=== PATIENT | female | born 2000 ===

== ENCOUNTER 2024-11-19 18:55 | Emergency (ER) | payer BC, SELFPAY ==
--- NOTE | ~2024-11-19 | XR_ITS ---
CLINICAL HISTORY: CP 2 view chest x-ray Comparison: None Findings: Lungs are clear without acute infiltrates. No pneumothorax. Heart size normal. No acute bony abnormalities. Metallic density under left breast. Presumably this is external. Physical exam correlation recommended. Impression: Presumed external metallic density under left breast No acute processes This document has been electronically signed by: Leonardo Harris MD on 11/19/2024 20:38:25
[2024-11-19 19:49] VITALS: BP 104/62; PULSE 93; RESP 18; TEMP 38.2; O2SAT 97; BMI 32.0
--- NOTE | 2024-11-19 19:50 | ED.URI ---
HPI - URI/Sore Throat General Chief Complaint: Fever Stated Complaint: Fever Time Seen by Provider: 11/20/24 03:40 Source: patient, family and language interpreter Mode of arrival: ambulatory Limitations: no limitations History of Present Illness ED Provider: DR. Figueroa HPI Narrative: 24-year-old female came in for evaluation of fever, generalized body ache, sore throat, coughing, intermittent nausea started since Monday. No CP, no SOB, no abdominal pain, no vomiting, no diarrhea, no dysuria, no frequency urination, no hematuria, no history of intra-abdominal surgery. No recent travel, no exposure to sick contacts. Related Data Previous Rx's ?Medication ?Instructions ?Recorded amoxicillin 875 mg-potassium 1 tab PO Q12H #14 tabs 11/20/24 clavulanate 125 mg tablet prednisone 20 mg tablet 20 mg PO BID #10 tabs 11/20/24 Allergies Allergy/AdvReac Type Severity Reaction Status Date / Time No Known Allergies Allergy Verified 11/19/24 19:51 Review of Systems Review of Systems: All other systems are reviewed and are negative Constitutional: Reports as per HPI and Reports no additional constitutional complaints Eyes: Reports as per HPI and Reports no additional eye complaints Reports system reviewed and no additional complaints, except as documented Cardiovascular: Reports as per HPI and Reports no additional cardiovascular complaints Respiratory: Reports as per HPI and Reports no additional respiratory complaints Gastrointestinal: Reports as per HPI and Reports no additional gastrointestinal complaints Genitourinary: Reports no additional female genitourinary complaints Musculoskeletal: Reports no additional musculoskeletal complaints Skin/Breast: Reports system reviewed and no additional complaints, except as docu Psychiatric: Reports no additional psychiatric complaints Endocrine: Reports no additional endocrine complaints Hematologic/Lymphatic: Reports no additional hematologic/lymphatic complaints Allergic/Immunologic: Reports no additional allergic/immunologic complaints Reports system reviewed and no additional complaints, except as documented and Reports Abnormal speech present [facility] Social History Social History Alcohol intake: never Smoked in Last 30 Days: No Use of substances other than those prescribed or required for medical reasons: No Advance Directives: No Advance Directives Information Provided: Yes Patient : No Physical Exam Vital Signs: Vital Signs: Last Vital Signs Temp 100.4 F 11/20/24 05:03 Pulse 98 11/20/24 05:03 Resp 16 11/20/24 05:03 BP 105/48 L 11/20/24 05:03 Pulse Ox 97 11/20/24 05:03 O2 Del Method Room Air 11/20/24 05:03 BMI result Body Mass Index 32.0 Vital signs have been reviewed and appear to be correct. Blood pressure elevated. Heart rate normal. Respiratory rate normal. Temperature normal. Oxygen saturation normal. Appearance: Alert. Oriented X3. No acute distress. Head: Normal external exam. Normocephalic. Atraumatic. No Rahman signs noted. No raccoon eyes noted Eyes: PERRLA. EOMI. Conjunctiva and sclera normal. Eyelids normal. ENT: TM's Normal. Pharynx normal. Uvula midline. Moist mucous membranes. No trismus noted. No drooling noted. No muffled voice noted. diffuse tenderness over bilateral frontal To percussion. Neck: Normal inspection. Neck supple. FROM. No adenopathy. Thyroid Normal. No meningeal signs. No neck mass noted. CVS: Normal heart rate and rhythm. Heart sound normal. No murmurs noted. Pulses normal throughout. Respiratory: No respiratory distress. Painless inspiration. Breath sounds normal. No wheezes/rales/rhonchi noted. Chest nontender. No accessory muscle usage noted or decreased air movement noted. Abdomen: Soft and nontender. Bowel sounds normal in all 4 quadrants. No distention noted. No organomegaly noted. No visible injury noted. Back: No CVA tenderness. Full range of motion noted. Skin: Skin warm and dry. Normal skin color. Normal skin turgor. No rashes/lesions/lacerations noted. Extremities: No lower extremity edema. Extremities exhibit normal range of motion. Extremities nontender. Neuro: Oriented X 3. Cranial nerve exam: II-XII are grossly intact No motor deficit. No sensory deficit. Reflexes normal. Course Course Course Narrative: This is an RME: Additional HPI, ROS, PE not included below will be deferred to primary provider. RME assessment and note performed by: Daniella Robert PA-C This is a [id number] who presents emergency department with complaints of chest pain, shortness of breath, sore throat x 2 days. Plan: Viral swabs, chest x-ray Reevaluation(s) Reevaluation #1: Acute sinusitis, patient feels better after IV antibiotic and Toradol. Physical exam is consistent with acute sinusitis otherwise negative chest x-ray. Time: 06:42 Medications Administered Discontinued Medications Generic Name Dose Route Start Last Admin Trade Name Antione PRN Reason Stop Dose Admin Acetaminophen 975 mg 11/19/24 19:52 11/19/24 20:15 Acetaminophen 325 Mg Tablet PO 11/19/24 19:53 975 mg ONCE ONE Administration Sodium Chloride 1,000 mls @ 999 mls/hr 11/20/24 03:41 11/20/24 04:12 Ns IV 11/20/24 04:41 999 mls/hr .Q1H1M ONE Administration Ketorolac Tromethamine 15 mg 11/20/24 03:59 11/20/24 04:12 Ketorolac Tromethamine 15 Mg/Ml Vial IVPUSH 11/20/24 04:00 15 mg ONCE ONE Administration Medical Decision Making Differential Diagnosis Differential Diagnoses: The differential diagnosis associated with the presentation includes ( Pneumonia, pneumothorax, pleural effusion, influenza a, RSV, COVID-19 infection, strep pharyngitis, acute sinusitis.) Admission/Observation Consideration of admission/observation: Escalation of care including admission/observation considered Lab Data MDM Lab Attestation statement: I reviewed the patient's lab results. 11/19/24 20:31 11/19/24 20:31 Labs: Lab Results 11/19/24 11/20/24 11/20/24 Range/Units 20:31 03:57 03:59 WBC 19.0 H (4.8-10.8) X10*3/uL RBC 4.66 (4.20-5.50) X10*6/uL Hgb 13.4 (12.0-16.0) g/dl Hct 39.9 (37.0-47.0) % MCV 85.6 (80.0-98.0) fL MCH 28.8 (27.0-33.0) pg MCHC 33.6 (31.0-35.0) g/dl RDW 13.2 (11.0-16.0) % Plt Count 396 (160-400) X10*3/uL MPV 9.5 (9.4-12.3) fL Immature Gran % (Auto) 0.4 (0.0-0.4) % Neut % (Auto) 85.3 H (45-73) % Lymph % (Auto) 7.5 L (20-40) % [place] % (Auto) 6.3 (2-11) % Eos % (Auto) 0.1 (0-4) % Baso % (Auto) 0.4 (0-2) % Lymph # (Auto) 1.4 (1.2-4.9) X10*3/uL [place] # (Auto) 1.2 (0.1-1.2) X10*3/uL Eos # (Auto) 0.0 (0.0-0.4) X10*3/uL Baso # (Auto) 0.1 (0.0-0.2) X10*3/uL Abs Immat Gran (auto) 0.08 H (0.00-0.03) X10*3/uL Absolute Neuts (auto) 16.2 H (2.0-8.3) x10*3/uL Absolute Nucleated RBC 0.000 (0.0-0.012) X10*3/uL Nucleated RBC % (auto) 0.0 (0.0-0.2) /100WBC Sodium 138 (135-145) mmol/L Potassium 4.3 (3.3-5.1) mmol/L Chloride 108 (96-108) mmol/L Carbon Dioxide 21 L (22-29) mmol/L Anion Gap 13 (12-20) BUN 9 (9-16) mg/dL Creatinine 0.75 (0.5-1.4) mg/dL Estim Creat Clear Calc 119.2 Estimated GFR > 60 Random Glucose 108 (60-115) mg/dL Lactic Acid 1.2 (0.5-2.0) mmol/L Calcium 8.9 (8.4-10.2) mg/dL Total Bilirubin 0.3 (0.0-1.0) mg/dL AST 22 (5-31) U/L ALT 25 (0-31) U/L Alkaline Phosphatase 98 (39-117) U/L Troponin I High Sens < 2.7 (<3.5-17.0) ng/L Total Protein 8.0 (6.5-8.0) g/dL Albumin 4.2 (3.5-5.0) g/dL Beta HCG, Quant < 2 mIU/mL Urine Color Yellow Urine Appearance Clear Urine pH 5.5 (5.0-9.0) Ur Specific [place] >= 1.030 H (1.005-1.025) Urine Protein Trace (Neg-Trace) mg/dL Urine Glucose (UA) Negative (Negative) mg/dL Urine Ketones 80 (Negative) mg/dL Urine Blood Negative (Negative) Urine Nitrite Negative (Negative) Ur Leukocyte Esterase Negative (Negative) Monoscreen (Negative) Influenza Type A (PCR) NEGATIVE (Negative) Influenza Type B (PCR) NEGATIVE (Negative) RSV RNA Qual (PCR) NEGATIVE (Negative) SARS-CoV-2 RNA (RT-PCR) NEGATIVE (Negative) S. pyogenes GrpA JACKIE Negative (Negative) 11/20/24 11/20/24 Range/Units 04:01 05:11 WBC (4.8-10.8) X10*3/uL RBC (4.20-5.50) X10*6/uL Hgb (12.0-16.0) g/dl Hct (37.0-47.0) % MCV (80.0-98.0) fL MCH (27.0-33.0) pg MCHC (31.0-35.0) g/dl RDW (11.0-16.0) % Plt Count (160-400) X10*3/uL MPV (9.4-12.3) fL Immature Gran % (Auto) (0.0-0.4) % Neut % (Auto) (45-73) % Lymph % (Auto) (20-40) % [place] % (Auto) (2-11) % Eos % (Auto) (0-4) % Baso % (Auto) (0-2) % Lymph # (Auto) (1.2-4.9) X10*3/uL [place] # (Auto) (0.1-1.2) X10*3/uL Eos # (Auto) (0.0-0.4) X10*3/uL Baso # (Auto) (0.0-0.2) X10*3/uL Abs Immat Gran (auto) (0.00-0.03) X10*3/uL Absolute Neuts (auto) (2.0-8.3) x10*3/uL Absolute Nucleated RBC (0.0-0.012) X10*3/uL Nucleated RBC % (auto) (0.0-0.2) /100WBC Sodium (135-145) mmol/L Potassium (3.3-5.1) mmol/L Chloride (96-108) mmol/L Carbon Dioxide (22-29) mmol/L Anion Gap (12-20) BUN (9-16) mg/dL Creatinine (0.5-1.4) mg/dL Estim Creat Clear Calc Estimated GFR Random Glucose (60-115) mg/dL Lactic Acid (0.5-2.0) mmol/L Calcium (8.4-10.2) mg/dL Total Bilirubin (0.0-1.0) mg/dL AST (5-31) U/L ALT (0-31) U/L Alkaline Phosphatase (39-117) U/L Troponin I High Sens (<3.5-17.0) ng/L Total Protein (6.5-8.0) g/dL Albumin (3.5-5.0) g/dL Beta HCG, Quant mIU/mL Urine Color Urine Appearance Urine pH (5.0-9.0) Ur Specific [place] (1.005-1.025) Urine Protein (Neg-Trace) mg/dL Urine Glucose (UA) (Negative) mg/dL Urine Ketones (Negative) mg/dL Urine Blood (Negative) Urine Nitrite (Negative) Ur Leukocyte Esterase (Negative) Monoscreen Negative (Negative) Influenza Type A (PCR) (Negative) Influenza Type B (PCR) (Negative) RSV RNA Qual (PCR) (Negative) SARS-CoV-2 RNA (RT-PCR) (Negative) S. pyogenes GrpA JACKIE Negative (Negative) Independent Interpretation I performed an independent interpretation of an: Plain X-Ray ( Chest:Lungs are clear without acute infiltrates. No pneumothorax. Heart size normal. No acute bony abnormalities. Metallic density under left breast. Presumably this is external. Physical exam correlation recommended.) Radiology Impression Discussion of test interpretation with radiology: I have reviewed the radiologist's reading. Discharge Plan Discharge Clinical Impression: Sinusitis Patient Disposition: Home, Self-Care Instructions: Sinusitis (ED) Prescriptions: New amoxicillin-pot clavulanate 875-125 mg tablet 1 tab PO Q12H Qty: 14 0RF prednisone 20 mg tablet 20 mg PO BID Qty: 10 0RF Print Language: Maltese
--- NOTE | 2024-11-19 19:52 | ECG_ITS ---
Test Reason : CP Blood Pressure : */* mmHG Vent. Rate : 82 BPM Atrial Rate : 82 BPM P-R Int : 148 ms QRS Dur : 80 ms QT Int : 372 ms P-R-T Axes : 43 23 37 degrees QTcB Int : 434 ms Normal sinus rhythm with sinus arrhythmia Normal ECG No previous ECGs available Referred By: Daniella Robert Electronically Signed By: SUHAIL BECKER
[2024-11-19] MEDS: Acetaminophen 325 MG TABLET 975 MG PO (20:15)
[2024-11-19 20:47] LABS: MANUAL DIFF FLAG NO
[2024-11-19 20:56] LABS: IDNOW Serial# 6674DD1D; Strep A Nucleic Acid Negative (Negative)
[2024-11-19 21:00] LABS: Basophils Absolute Auto 0.1 X10*3/uL (0.0-0.2); Basophils Percent Auto 0.4 % (0-2); Eosinophils Percent Auto 0.1 % (0-4); Hematocrit 39.9 % (37.0-47.0); Hemoglobin 13.4 g/dl (12.0-16.0); Imm Gran Abs Auto 0.08 X10*3/uL (0.00-0.03); Imm Gran Pct Auto 0.4 % (0.0-0.4); Lymphocytes Absolute Auto 1.4 X10*3/uL (1.2-4.9); Lymphocytes Percent Auto 7.5 % (20-40); Mean Corpuscular HGB Conc 33.6 g/dl (31.0-35.0); Mean Corpuscular Hemoglobin 28.8 pg (27.0-33.0); Mean Corpuscular Volume 85.6 fL (80.0-98.0); Mean Platelet Volume 9.5 fL (9.4-12.3); Monocytes Absolute Auto 1.2 X10*3/uL (0.1-1.2); Monocytes Percent Auto 6.3 % (2-11); Neutrophils Absolute Auto 16.2 x10*3/uL (2.0-8.3); Neutrophils Percent Auto 85.3 % (45-73); Platelet Count 396 X10*3/uL (160-400); Red Blood Count 4.66 X10*6/uL (4.20-5.50); Red Cell Distribution Width 13.2 % (11.0-16.0)
[2024-11-19 21:05] LABS: Alanine Aminotransferase 25 U/L (0-31); Albumin Level 4.2 g/dL (3.5-5.0); Alkaline Phosphatase 98 U/L (39-117); Anion Gap 13 (12-20); Aspartate Amino Transferase 22 U/L (5-31); Bilirubin Total 0.3 mg/dL (0.0-1.0); Blood Urea Nitrogen 9 mg/dL (9-16); Calcium 8.9 mg/dL (8.4-10.2); Carbon Dioxide 21 mmol/L (22-29); Chloride 108 mmol/L (96-108); Creatinine Clr Calc Pharmacy 119.2; Estimated Glomerular Filt Rate > 60; Glucose Random 108 mg/dL (60-115); Potassium 4.3 mmol/L (3.3-5.1); Sodium 138 mmol/L (135-145)
[2024-11-19 21:16] LABS: HCG Quantitative < 2 mIU/mL; Troponin-I High Sensitivity < 2.7 ng/L (<3.5-17.0)
[2024-11-19 21:36] LABS: Influenza A PCR NEGATIVE (Negative); Influenza B PCR NEGATIVE (Negative); Resp Syncy Virus RNA Qual PCR NEGATIVE (Negative); SARS COV2 PCR INHOUSE NEGATIVE (Negative)
[2024-11-20 03:22] VITALS: BP 99/49; PULSE 113; RESP 18; TEMP 38.5; O2SAT 97
[2024-11-20] MEDS: 0.9 % Sodium Chloride 1,000 ML 999 ML IV (04:12)
[2024-11-20] MEDS: Ketorolac Tromethamine 15 MG/ML VIAL IVPUSH (04:12)
[2024-11-20 04:14] LABS: Appearance Urine Clear; Color Urine Yellow; Glucose Urine UA Negative (Negative); Leukocyte Esterase Urine Negative (Negative); Nitrite Urine Negative (Negative); PH 5.5 (5.0-9.0); Specific Gravity - Urine >= 1.030 (1.005-1.025); Urine Blood Negative (Negative); Urine Ketones 80 mg/dL (Negative); Urine Protein Trace mg/dL (Neg-Trace)
[2024-11-20 04:19] LABS: IDNOW Serial# 58CA691E; Strep A Nucleic Acid Negative (Negative)
[2024-11-20 04:30] LABS: Lactic Acid 1.2 mmol/L (0.5-2.0)
[2024-11-20 05:03] VITALS: BP 105/48; PULSE 98; RESP 16; TEMP 38; O2SAT 97
--- NOTE | 2024-11-20 05:07 | PC.NURSE ---
Assumed care of pt at 314, pt vitals taken, temp 101 orally, tachy 110's, and wbc. MD made aware and requested BC X2, lactic and order for NS and toradol. Labs drawn and meds given as ordered. #22 IV placed in R-hand. iv fluids running. Pt also c/o 10/10 pain in throat that started on Monday. Strep test completed, negative, serology negative, UA negative, no source of infection at this time.
[2024-11-20 05:25] LABS: Monotest Negative (Negative)
[2024-11-20] MEDS: Amoxicillin/Potassium Clav 875 MG TABLET PO (07:05)
[2024-11-20] MEDS: predniSONE 10 MG TABLET 50 MG PO (07:05)
[2024-11-20 07:10] VITALS: BP 105/48; PULSE 98; RESP 16; TEMP 38; O2SAT 97
== END 2024-11-20 07:26 | disposition home or self-care (01) ==
PROVIDERS: Physician Assistant Medical; Emergency Provider Emergency Medicine
DX: J32.9 Chronic sinusitis, unspecified (principal); R05.9 Cough, unspecified; R50.9 Fever, unspecified; R06.02 Shortness of breath; R07.9 Chest pain, unspecified; Z03.818 Encounter for observation for suspected exposure to other biological agents ruled out
CPT/HCPCS: 0241U; 36415; 71046; 80053; 81003; 83605; 84484; 84702; 85025; 86308; 87040; 87651; 93005; 96361; 96374; 99284; 99285; J1885

== ENCOUNTER → 2024-11-19 19:52 | Outpatient (BNV) | payer BC, SELFPAY | PROVIDERS: Visit Provider Radiology Diagnostic Radiology | DX: R07.9 Chest pain, unspecified (principal) | CPT/HCPCS: 71046 ==

== ENCOUNTER → 2024-11-19 19:52 | Outpatient (BNV) | payer BC, SELFPAY | PROVIDERS: Emergency Provider Emergency Medicine; Visit Provider Internal Medicine | DX: R07.9 Chest pain, unspecified (principal) | CPT/HCPCS: 93010 ==

== ENCOUNTER 2025-02-02 23:28 | Emergency (ER) | payer BC, SELFPAY ==
[2025-02-02 23:34] VITALS: BP 113/80; PULSE 80; RESP 16; TEMP 36.6; O2SAT 99; BMI 27.5
[2025-02-03 00:11] VITALS: BP 119/61; PULSE 79; RESP 18; O2SAT 98
[2025-02-03 00:15] LABS: MANUAL DIFF FLAG NO
[2025-02-03 00:16] LABS: Basophils Absolute Auto 0.1 X10*3/uL (0.0-0.2); Basophils Percent Auto 0.4 % (0-2); Eosinophils Absolute Auto 0.1 X10*3/uL (0.0-0.4); Eosinophils Percent Auto 0.5 % (0-4); Hematocrit 42.2 % (37.0-47.0); Hemoglobin 14.1 g/dl (12.0-16.0); Imm Gran Abs Auto 0.04 X10*3/uL (0.00-0.03); Imm Gran Pct Auto 0.2 % (0.0-0.4); Lymphocytes Absolute Auto 4.5 X10*3/uL (1.2-4.9); Lymphocytes Percent Auto 27.8 % (20-40); Mean Corpuscular HGB Conc 33.4 g/dl (31.0-35.0); Mean Corpuscular Hemoglobin 28.2 pg (27.0-33.0); Mean Corpuscular Volume 84.4 fL (80.0-98.0); Mean Platelet Volume 8.8 fL (9.4-12.3); Monocytes Absolute Auto 0.9 X10*3/uL (0.1-1.2); Monocytes Percent Auto 5.6 % (2-11); Neutrophils Absolute Auto 10.7 x10*3/uL (2.0-8.3); Neutrophils Percent Auto 65.5 % (45-73); Platelet Count 360 X10*3/uL (160-400); Red Cell Distribution Width 13.6 % (11.0-16.0); White Blood Count 16.3 X10*3/uL (4.8-10.8)
[2025-02-03 00:30] LABS: Alanine Aminotransferase 26 U/L (0-31); Albumin Level 4.4 g/dL (3.5-5.0); Alkaline Phosphatase 118 U/L (39-117); Anion Gap 14 (12-20); Aspartate Amino Transferase 25 U/L (5-31); Bilirubin Total 0.3 mg/dL (0.0-1.0); Blood Urea Nitrogen 10 mg/dL (9-16); Calcium 9.4 mg/dL (8.4-10.2); Carbon Dioxide 26 mmol/L (22-29); Chloride 108 mmol/L (96-108); Creatinine Clr Calc Pharmacy 119.6; Estimated Glomerular Filt Rate > 60; Glucose Random 90 mg/dL (60-115); Potassium 4.3 mmol/L (3.3-5.1); Sodium 144 mmol/L (135-145); Total Protein 7.7 g/dL (6.5-8.0)
[2025-02-03 00:37] LABS: Appearance Urine Clear; Color Urine Orange; Glucose Urine UA 100 mg/dL (Negative); Leukocyte Esterase Urine Small (1+) (Negative); Nitrite Urine Positive (Negative); Specific Gravity - Urine 1.025 (1.005-1.025); UMIC TRIGGER UACC YES; Urine Blood Trace (Negative); Urine Ketones Trace mg/dL (Negative); Urine Protein 100 (2+) mg/dL (Neg-Trace)
[2025-02-03 00:39] LABS: HCG Quantitative < 2 mIU/mL
[2025-02-03 00:42] LABS: Bacteria Urine None Seen (None Seen); Hyaline Casts Urine 0-2 /LPF (0-2); UACC Culture Trigger YES; WBC Urine 21-50 /HPF (0-5)
--- NOTE | 2025-02-03 01:04 | ED.ABDPAIN ---
HPI - Abdominal Pain General Chief Complaint: Abdominal Pain Stated Complaint: , abd pain Time Seen by Provider: 02/02/25 23:55 Source: patient Mode of arrival: ambulatory Limitations: no limitations History of Present Illness ED Provider: Dr. Yesika Granda HPI narrative: Patient comes to the emergency room complaining of frequency dysuria. Patient denies significant abdominal pain or flank pain. Denies fever or chills. Denies nausea vomiting or diarrhea. Related Data Previous Rx's ?Medication ?Instructions ?Recorded amoxicillin 875 mg-potassium 1 tab PO Q12H #14 tabs 11/20/24 clavulanate 125 mg tablet prednisone 20 mg tablet 20 mg PO BID #10 tabs 11/20/24 sulfamethoxazole 800 1 tab PO BID #6 tabs 02/03/25 mg-trimethoprim 160 mg tablet (Bactrim DS) Allergies Allergy/AdvReac Type Severity Reaction Status Date / Time No Known Allergies Allergy Verified 02/02/25 23:42 Review of Systems Review of Systems Constitutional : No Weight loss, No Fever, No Chills, No Night Sweats, No Fatigue, No Malaise ENT/Mouth : No Hearing loss, No Ear Pain, No Nasal Congestion, No Sinus Pain, No Hoarseness, No sore throat, No Rhinorrhea, No Swallowing Difficulty Eyes: No Eye Pain, No Swelling, No Redness, No Foreign Body, No Discharge, No Vision Changes Cardiovascular : No Chest Pain, No SOB, No Dyspnea on Exertion, No Orthopnea, No Edema, No Palpitations Respiratory : No Cough, No Sputum, No Wheezing, No Smoke Exposure, No Dyspnea Gastrointestinal : No Nausea, No Vomiting, No Diarrhea, No Constipation, No abdominal Pain, No Hematochezia, No Melena Genitourinary : no irregular bleeding, complaining of frequency and dysuria, denies hematuria, denies flank pain Musculoskeletal : No joint pain, No Myalgias, No Joint Swelling Skin : No Skin Lesions, No rash Neuro : No Weakness, No Numbness, No Paresthesias, No Loss of Consciousness, No Dizziness, No Headache Psych : No Anxiety/Panic, No Depression, No SI/HI/AH/VH, No Social Issues, Heme/Lymph: No Bruising, No Bleeding,No Lymphadenopathy Endocrine : No Polyuria, No Polydipsia, No Temperature Intolerance [facility] Social History Social History Alcohol intake: never Advance Directives: No Advance Directives Information Provided: Yes Do you have a plan to hurt others: No Plan Physical Exam ED Vital Signs: Vital Signs - 24 hr 02/02/25 23:34 02/03/25 00:11 Temperature 97.9 F Pulse Rate 80 79 Respiratory Rate 16 18 Blood Pressure 113/80 119/61 Pulse Oximetry 99 98 Oxygen Delivery Method Room Air Room Air BMI result Body Mass Index 27.5 Const Other: P Appearance: Alert. Oriented X3. No acute distress. Well-appearing Eyes: Pupils equal, round and reactive to light. ENT: Pharynx normal. Neck: Normal inspection. Neck supple. No lymph nodes noted. No crepitus CVS: Normal heart rate and rhythm. Pulses normal. Normal S1 and S2 Respiratory: No respiratory distress. Breath sounds normal. No Wheezing. No rales Abdomen: Soft and nontender. No rigidity. No distention. Skin: Skin warm and dry. Normal skin color. Normal skin turgor. Extremities: No lower extremity edema. No Lacerations. No Rash Neuro: Oriented X 3. No motor deficit. No sensory deficit. Moving all extremities. No slurred speech. CN 2 through 12 grossly intact Psych: calm, cooperative, normal affect Medical Decision Making Medical Decision Making [facility] Narrative: I discussed the labs with the patient, patient's white blood cell count 16.3, normal chemistry, urinalysis positive for UTI. Patient does not have fever or chills. Patient has normal blood pressure, no flank pain, pyelonephritis or sepsis is not suspected Patient states that she already took a dose of azo at home and has more tablets. Discussed with the patient to take up to 6 doses. Patient was given Bactrim double-strength here in the emergency room. test negative Lab Data [facility] Lab Attestation statement: I reviewed the patient's lab results. 02/03/25 00:10 02/03/25 00:10 Labs: Lab Results 02/03/25 02/03/25 Range/Units 00:10 00:29 WBC 16.3 H (4.8-10.8) X10*3/uL RBC 5.00 (4.20-5.50) X10*6/uL Hgb 14.1 (12.0-16.0) g/dl Hct 42.2 (37.0-47.0) % MCV 84.4 (80.0-98.0) fL MCH 28.2 (27.0-33.0) pg MCHC 33.4 (31.0-35.0) g/dl RDW 13.6 (11.0-16.0) % Plt Count 360 (160-400) X10*3/uL MPV 8.8 L (9.4-12.3) fL Immature Gran % (Auto) 0.2 (0.0-0.4) % Neut % (Auto) 65.5 (45-73) % Lymph % (Auto) 27.8 (20-40) % [place] % (Auto) 5.6 (2-11) % Eos % (Auto) 0.5 (0-4) % Baso % (Auto) 0.4 (0-2) % Lymph # (Auto) 4.5 (1.2-4.9) X10*3/uL [place] # (Auto) 0.9 (0.1-1.2) X10*3/uL Eos # (Auto) 0.1 (0.0-0.4) X10*3/uL Baso # (Auto) 0.1 (0.0-0.2) X10*3/uL Abs Immat Gran (auto) 0.04 H (0.00-0.03) X10*3/uL Absolute Neuts (auto) 10.7 H (2.0-8.3) x10*3/uL Absolute Nucleated RBC 0.000 (0.0-0.012) X10*3/uL Nucleated RBC % (auto) 0.0 (0.0-0.2) /100WBC Sodium 144 (135-145) mmol/L Potassium 4.3 (3.3-5.1) mmol/L Chloride 108 (96-108) mmol/L Carbon Dioxide 26 (22-29) mmol/L Anion Gap 14 (12-20) BUN 10 (9-16) mg/dL Creatinine 0.72 (0.5-1.4) mg/dL Estim Creat Clear Calc 119.6 Estimated GFR > 60 Random Glucose 90 (60-115) mg/dL Calcium 9.4 (8.4-10.2) mg/dL Total Bilirubin 0.3 (0.0-1.0) mg/dL AST 25 (5-31) U/L ALT 26 (0-31) U/L Alkaline Phosphatase 118 H (39-117) U/L Total Protein 7.7 (6.5-8.0) g/dL Albumin 4.4 (3.5-5.0) g/dL Beta HCG, Quant < 2 mIU/mL Urine Color [place] Urine Appearance Clear Urine pH 5.0 (5.0-9.0) Ur Specific [place] 1.025 (1.005-1.025) Urine Protein 100 (2+) H (Neg-Trace) mg/dL Urine Glucose (UA) 100 H (Negative) mg/dL Urine Ketones Trace (Negative) mg/dL Urine Blood Trace (Negative) Urine Nitrite Positive H (Negative) Ur Leukocyte Esterase Small (1+) H (Negative) Urine RBC 3-5 H (0-2) /HPF Urine WBC 21-50 H (0-5) /HPF Ur Squamous Epith Cells 3-5 (0-2) /HPF Urine Bacteria None Seen (None Seen) Hyaline Casts 0-2 (0-2) /LPF Blood Type O Positive Discharge Plan Discharge Clinical Impression: UTI (urinary tract infection) Patient Disposition: Home, Self-Care Instructions: Urinary Tract Infection in Women (ED) Additional Instructions: Please follow-up with your primary care physician tomorrow. If you have any worsening or new symptoms, please return to the emergency room or call 911 Prescriptions: New sulfamethoxazole-trimethoprim [Bactrim DS] 800-160 mg tablet 1 tab PO BID Qty: 6 0RF No Action amoxicillin-pot clavulanate 875-125 mg tablet 1 tab PO Q12H Qty: 14 0RF prednisone 20 mg tablet 20 mg PO BID Qty: 10 0RF Stand Alone Forms: Work/School Release Print Language: Estonian
[2025-02-03 01:38] VITALS: BP 113/68; PULSE 72; RESP 18; TEMP 37.2; O2SAT 96
[2025-02-03] MEDS: Sulfamethox/Trimeth 800/160 TABLET 1 TAB PO (01:40)
[2025-02-03 01:44] VITALS: BP 113/68; PULSE 72; RESP 18; TEMP 37.2; O2SAT 96
== END 2025-02-03 01:44 | disposition home or self-care (01) ==
PROVIDERS: Emergency Provider Emergency Medicine; PCP Internal Medicine
DX: O23.40 Unspecified infection of urinary tract in pregnancy, unspecified trimester (principal); N39.0 Urinary tract infection, site not specified; Z3A.00 Weeks of gestation of pregnancy not specified
CPT/HCPCS: 36415; 80053; 81001; 84702; 85025; 86900; 86901; 87086; 87147; 99283

== ENCOUNTER 2025-02-05 | Outpatient (REF) | payer BC, SELFPAY ==
--- OUTSIDE RECORDS SUMMARY | 2025-02-06 12:53 | XMS_ITS | Encounter Summary ---
Author Organization [employer] Address [address] [place] [address] Care Team Providers Care Maintenance Department Technician Name Role Phone Kvng Caldwell MD Primary Care Prov ider Reason for Visit * Reason Onset Date Comments Triage 02/05/2025 Encounter Details Date Type Department Care Team ([facility] st Contact Info) Description 02/05/2025 Telephone [facility] [address] [place] [address] Kvng Caldwell MD [address] [place] [address] Triage Social History Tobacco Use Types Packs/Day Years Used Date Smoking Tobacco: Never Passive Smoke Exposure: Never Smokeless Tobacco: Never Alcohol Use Standard Drinks/Week Comments Yes 0 (1 standard drink = 0.6 oz pur e alcohol) social once a month Depression Answer Date Recorded Patient Health Questionnaire-9 Score 0 02/03/2025 Patient Health Questionnaire-9 Score 0 02/03/2025 Last PHQ-9: Questionnaire Data Not on file 0 02/03/2025 Housing Stability Answer Date Recorded What is your housing situation today? I have akilah rice 02/03/[address] you li ve. Do you have problems with any of the following? None of the above 02/03/2025 Food Insecurity Answer Date Recorded Within the past 12 months, y ou worried that your food would run out before you got money to buy more: Never True 02/03/2025 Within the past 12 months,th e food you bought just didn't last and you didn't have enough money to get more: Never True 01/2025 Transportation Answer Date Recorded In the past 12 months, has l ack of transportation kept you from medical appts, meetings, work or from getting things needed for daily living? No 02/03/2025 Utilities Answer Date Recorded In the past 12 months, has t he electric, gas, oil or water company threatened to shut off services in your home? No 02/03/2025 Depression Answer Date Recorded Patient Health Questionnaire-2 Score 0 02/03/2025 Internet Access Answer Date Recorded Internet Access Q1 Yes 02/03/2025 Internet Access Q2 Not on file 02/03/2025 Comments Unknown Sex and Gender Information Value Date Recorded Sex Assigned at Female 01/31/2025 9:46 AM EDT Legal Sex Female 9:55 AM EDT Gender Identity Female 01/31/2025 9:46 AM EDT Sexual Orientation Don't know 01/31/2025 9: 46 AM EDT documented as of this encounter Miscellaneous Notes * Telephone Encounter - Adia Vazquez RN - 02/05/2025 10:34 AM EDT Emergency Room Name and Visit Date: [facility] 02/03/2025 Discharge Dx: UTI Discharge Medications: sulfamethoxazole-trimethoprim [Bactrim DS] 800-160 mg tablet 1 tab PO BID Qty: 6 Follow up Instructions: PCP follow up PRN No donkey ride operator needed as 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 Call returned to Ngozi Singletary to triage below. Patient confirms picking up above rx . Last dose taken yesterday at 11pm. Per patient did have improvement of symptoms. Per patient having burning with passing urine and vulvar discomfort. Pt is having white yellow discharge. No odor. Pt advised of disposition, agrees to seek [place] for exam as no sick on site availability on teams at time of call. Reviewed [facility] operating hours and that wait times vary.Reviewed home care advise, ER precautions and reasons to call back. Protocol Used: Vaginal Discharge (Adult) Protocol-Based Disposition: See in Office or Video Visit within 3 Days Positive Triage Question: * Symptoms of a yeast infection (i.e., itchy, white discharge, not bad smelling) and not improved > 3 days following Care Advice * All higher-acuity triage questions were negative Care Advice Discussed: * Reassurance and Education - Vaginal Yeast Infection * Genital Hygiene * Reasons To Call Back - You become worse * Telephone Encounter - Maribel Yuri - 02/05/2025 10:08 AM EDT Symptom: Urination Pain Outcome: Schedule a same-day appointment or talk to a nurse or provider today Reason: Caller denied all higher acuity questions The caller accepted this outcome. (Pt was seen at [facility] on 02/03/25) Czech [phone] documented in this encounter Plan of Treatment Upcoming Encounters Date Type Department Care Team (Late st Contact Info) Description 05/05/2025 2:30 PM EDT Office Visit [facility] [address] [place] [address] Kvng Caldwell MD [address] [place] [address] documented as of this encounter Visit Diagnoses Not on filedocumented in this encounter Additional Health Concerns Assessment Noted Time PHQ-9 Depression Total Score: 0 02/04/20 8:58 AM EDT documented as of this encounter Care Teams Maintenance Department Technician Relationship Specialty Start Date End Date Kvng Caldwell MD [address] [place] [address] PCP - General Internal Medicine 02/05/25 documented as of this encounter
--- OUTSIDE RECORDS SUMMARY | 2025-02-06 12:53 | XMS_ITS | Encounter Summary ---
Author Organization [employer] Address [address] [facility] 7t [place] [address] Care Team Providers Care Software Development Analyst Name Role Phone Unavailable Primary Care Provider Unavailabl e Encounter Details Date Type Department Care Team (Late st Contact Info) Description 02/03/2025 9:00 AM EDT Telemedicine [facility] MED & PEDS [address] [place] [phone] Kvng Caldwell MD [address] [place] [address] Encounter for medical examination to establish care (Primary Dx) Social History Tobacco Use Types Packs/Day Years Used Date Smoking Tobacco: Never Smokeless Tobacco: Never Tobacco Cessation:Counseling Given: Not Answered Alcohol Use Standard Drinks/Week Comments Yes 0 [...] AM EDT documented as of this encounter Progress Notes * Kvng Mitchell MD - 02/03/2025 9:00 AM EDT Subjective Patient ID: Ngozi Singletary is a 24 y.o. female who presents for No chief complaint on file.. HPI Patient was scheduled for a televisit to establish medical care Review of Systems Constitutional: Negative for chills, fatigue and fever. Respiratory: Negative for cough and shortness of breath. Cardiovascular: Negative for chest pain and palpitations. Objective Physical Exam Neurological: General: No focal deficit present. Mental Status: She is oriented to person, place, and time. Psychiatric: Mood and Affect: Mood normal. Behavior: Behavior normal. Assessment/Plan Problem List Items Addressed This Visit Encounter for medical examination to establish care - Primary Last pcp visit > 1 year ER: 01/2025 due to UTI Hospitalizations: - Pmhx: - Pshx: - All: - Meds: - G0 LMP: 12/20/24 Menarche: 15yrs documented in this encounter Miscellaneous Notes * Assessment & Plan Note - Kvng Mitchell MD - 02/03/2025 9:10 AM EDTAssociated Problem(s): Encounter for medical examination to establish care Last pcp visit > 1 year ER: 01/2025 due to UTI Hospitalizations: - Pmhx: - Pshx: - All: - Meds: - G0 LMP: 12/20/24 Menarche: 15yrs documented in this encounter Plan of Treatment Upcoming Encounters Date Type Department Care Team ([facility] st Contact Info) Description 05/05/2025 2:30 PM EDT Office Visit [facility] MED & PEDS [address], [place] [phone] Kvng Caldwell MD [address] [place] [address] documented as of this encounter Visit Diagnoses Diagnosis Encounter for medical examination to establish care- Primary documented in this encounter Additional Health Concerns Assessment Noted Time PHQ-9 Depression Total Score: 0 02/04/20 25 8:58 AM EDT documented as of this encounter
--- OUTSIDE RECORDS SUMMARY | 2025-02-06 12:53 | XMS_ITS | Clinical Summary ---
Author Organization [employer] Address [address] [facility] 7t [place] [address] Care Team Providers Care Manager Studio Name Role Phone Kvng Caldwell MD Primary Care Prov ider Allergies No known active allergies Medications clotrimazole (Gyne-Lotrimin) 1 % vaginal cream Insert 1 applicator into the vagina in the evening for 7 days. 45 g 5 02/13/20 25 Active fluconazole (Diflucan) 150 MG tablet Take 1 tablet (150 mg) by mouth 1 (one) time for 1 dose. 1 tablet 5 02/06/20 25 Active Problems Problem Noted Date Diagnosed Date Encounter for medical examination to establish c are 02/03/2025 Assessment & Plan (02/03/2025 9:10 AM EDT): Last pcp visit > 1 year ER: 01/2025 due to UTI Hospitalizations: - Pmhx: - Pshx: - All: - Meds: - G0 LMP: 12/20/24 Menarche: 15yrs Encounters Date Type Department Care Team Description 02/05/2025 7:20 PM EDT Office Visit [facility] [address] [place] [address] Milind Smith MD Acute vaginitis (Primary Dx); Dysuria 02/05/2025 Telephone [facility] MED & PEDS [address] [place], [place] [phone] Kvng Caldwell MD Triage 02/03/2025 9:00 AM EDT Telemedicine [facility] MED & PEDS [address] [place], [place] [phone] Kvng Caldwell MD Encounter for medical examination to establish care (Primary Dx) 02/03/2025 Travel from Last 3 Months Family History Medical History Relation Name Comments No Known Problems Father Throat cancer Maternal Grandmother No Known Problems Mother Relation Name Status Comments Father Maternal Grandmother Mother Social History Tobacco Use Types Packs/Day Years Used Date Smoking Tobacco: Never Passive Smoke Exposure: Never Smokeless Tobacco: Never Tobacco Cessation:Counseling Given: [...] is your housing situation today? I have akilahyaneth riec 02/03/[address] you li [...] the past 12 months, has t he [employer], gas, oil or water [employer] threatened to shut off services in your [...] Don't know 01/31/2025 9: 46 AM EDT Last Filed Vital Signs Vital Sign Reading Time Taken Comments Blood Pressure 113/69 02/05/2025 5:58 PM EDT Pulse 72 02/05/2025 5:58 PM EDT Temperature 36.1 ??C (97 ??F) 02/05/2025 5:58 PM EDT Respiratory Rate 20 02/05/2025 5:58 PM EDT Oxygen Saturation 100% 02/05/2025 5:58 PM EDT Inhaled Oxygen Concentration - - Weight 82.2 kg (181 lb 3.2 oz) 02/05/2025 5:58 P M EDT Height 162.6 cm (5' 4 ) 02/05/2025 5:58 PM EDT Body Mass Index 31.1 02/05/2025 5:58 PM EDT Plan of Treatment Upcoming Encounters Date Type Department Care Team (Late st Contact Info) Description 05/05/2025 2:30 PM EDT Office Visit [facility] MED & PEDS [address] [place] [address] Kvng Caldwell MD [address] [place] [address] Health Maintenance Due Date Last Done Comments Chlamydia and Gonorrhea Screening 2002 HIV Screening 2002 Family Planning (PISQ) 2017 HPV Vaccines (1 - 3-dose series) 2017 Hepatitis C Screening 2020 DTaP/Tdap/Td Vaccines (1 - Tdap) 2021 Hepatitis B Vaccines (1 of 3 - 19+ 3-dose series) 2021 Pap Smear 2023 COVID-19 Vaccine ( - 2023-2 5 season) 2024 Influenza Vaccine (#1) 2024 Alcohol/Substance Use Screening 02/03/2026 02/03/2025 Depression Screening 02/03/2026 02/03/2025, 02/03/2025 SDOH Screening 02/03/2026 02/03/2025 Tobacco Screening 02/05/2026 02/05/2025 Zoster Vaccines (1 of 2) 2052 RSV Patients and Patients Aged 60 years or older (1 - 1-dose 75+ series) 2077 HIB Vaccines Aged Out No longer eligi ble based on patient's age to complete this topic Hepatitis A Vaccines Aged Out No long er eligible based on patient's age to complete this topic IPV Vaccines Aged Out No longer eligi ble based on patient's age to complete this topic Meningococcal Vaccine Aged Out No keisha maura eligible based on patient's age to complete this topic Pneumococcal Vaccine: Pediatrics (0 to 5 Years) and At-Risk Patients (6 to 49) Years) Aged Out No longer eligible b ased on patient's age to complete this topic RSV under 20 months Aged Out No longe r eligible based on patient's age to complete this topic Rotavirus Vaccines Aged Out No longer eligible based on patient's age to complete this topic Procedures Procedure Name Priority Date/Time Associated Diagnosis Comments POCT , URINE Routine 02/05/2025 6:27 PM EDT Dysuria POCT URINALYSIS DIPSTICK Routine 02/05/2025 6:26 PM EDT Dysuria from Last 3 Months Results * POCT Urine (02/05/2025 6:27 PM EDT) Preg Test, Ur Negative Negative, Indeterminate, None Detected, Invalid, Specimen unsatisfactory for evaluation, Weakly Positive, 2+ QC Media Lot # [id number] Lot# Expiration Date ,026 Urine 02/05/2025 6:27 PM EDT us Milind Name POINT OF CARE TEST ENTER/EDIT OR DERABLES Final Result * POCT Urinalysis (02/05/2025 6:26 PM EDT) Color, UA Yellow Clarity, UA Clear Glucose, UA Negative Bilirubin, UA Negative Ketones, UA Negative Spec Grav, UA 1.015 Blood, UA Negative Negative, None Detected pH, UA 6.0 Protein, UA Negative Urobilinogen, UA 0.2 Leukocytes, UA Negative Negative, Rare, Trace Nitrite, UA Negative Negative, None Detected Appearance, UA Yellow QC Media Lot # [id number] Lot# Expiration Date ,026 Urine 02/05/2025 6:26 PM EDT Milind Name POINT OF CARE TEST ENTER/EDIT OR DERABLES Final Result from Last 3 Months Insurance BCBS PPO Care Teams Manager Studio Relationship Specialty Start Date End Date Kvng Caldwell MD [address] [place] [phone] PCP - General Internal Medicine 02/05/25
--- OUTSIDE RECORDS SUMMARY | 2025-02-06 12:53 | XMS_ITS | Encounter Summary ---
Author Organization [employer] Address [address] [facility] [address] [facility] [address] 7[address] [place] [address] Care Team Providers Care Physician Non Invasive Cardiologist Name Role Phone Kvng Caldwell MD Primary Care Prov ider Reason for Visit * Reason Comments Walk-In Urination Pain Encounter Details Date Type Department Care Team ([facility] st Contact Info) Description 02/05/2025 7:20 PM EDT Office Visit [facility] WALK[facility] C[facility] [address] [place] [phone] Name, MD Milind [address] [place] [address] Acute vaginitis (Primary Dx); Dysuria Social History Tobacco Use Types Packs/Day Years [...] AM EDT documented as of this encounter Last Filed Vital Signs Vital Sign Reading [...] Mass Index 31.1 02/05/2025 5:58 PM EDT documented in this encounter Progress Notes * Milind Smith, - 02/05/2025 7:20 PM EDT Subjective Patient ID: Ngozi Singletary is a 24 y.o. female who presents for Walk-In (Urination Pain). Patient comes complaining of a couple of days of dysuria, vaginal irritation. She was recently treated for UTI at [facility] with Bactrim. Her urine dipstick today is not consistent with UTI. She is sexually active. She has 1 partner. Urine test is negative today. Review of Systems Constitutional: Negative for chills and fever. HENT: Negative for sore throat. Respiratory: Negative for cough, shortness of breath and wheezing. Cardiovascular: Negative for chest pain, palpitations and leg swelling. Gastrointestinal: Negative for abdominal pain. Genitourinary: She was having suprapubic discomfort, urinary frequency and dysuria when she presented to [facility]. All of the symptoms have resolved after treatment with Bactrim. What she describes today is more of irritation in the vulvar and vaginal area. Visit Vitals BP 113/69 (BP Location: Left arm, Patient Position: Sitting, BP Cuff Size: Adult) Pulse 72 Temp 97 ??F (36.1 ??C) (Temporal) Resp 20 Ht 5' 4 (1.626 m) Wt 181 lb 3.2 oz (82.2 kg) SpO2 100% BMI 31.10 kg/m?? Smoking Status Never BSA 1.93 m?? Objective Physical Exam Constitutional: General: She is not in acute distress. Appearance: Normal appearance. She is not ill-appearing. Cardiovascular: Rate and Rhythm: Normal rate and regular rhythm. Pulmonary: Effort: Pulmonary effort is normal. Breath sounds: Normal breath sounds. Musculoskeletal: Right lower leg: No edema. Left lower leg: No edema. Neurological: Mental Status: She is alert. Latest Reference Range & Units 02/05/25 18:26 Color, UA Yellow Specific [place], UA 1.015 pH, UA 6.0 Ketones, UA Negative Protein, UA Negative Nitrite, UA Negative, None Detected Negative RBC, UA Negative, None Detected Negative Clarity, UA Clear Glucose, UA Negative Leukocytes, UA Negative, Rare, Trace Negative Bilirubin UA Negative Urobilinogen, UA 0.2 Appearance, UA Yellow Latest Reference Range & Units 02/05/25 18:27 HCG UR QUAL Negative, Indeterminate, None Detected, Invalid, Specimen unsatisfactory for evaluation, Weakly Positive, 2+ Negative Assessment/Plan Diagnoses and all orders for this visit: Acute vaginitis Comments: I will treat empirically for vaginal yeast infection after recent antibiotic treatment. Urine dip is not consistent with UTI. Urine test is negative. We will send vaginal swabs for BV, [place], trichomonas, GC, chlamydia. Further recommendation based on her response to the medication and the results of the testing ordered today. Orders: - Bacterial Vaginosis Panel - Chlamydia/N. Gonorrhoeae RNA, TMA, Urogenitial Dysuria - POCT Urinalysis - POCT Urine Other orders - fluconazole (Diflucan) 150 MG tablet; Take 1 tablet (150 mg) by mouth 1 (one) time for 1 dose. - clotrimazole (Gyne-Lotrimin) 1 % vaginal cream; Insert 1 applicator into the vagina in the evening for 7 days. documented in this encounter Plan of Treatment Upcoming Encounters Date Type Department Care Team (Late st Contact Info) Description 05/05/2025 2:30 PM EDT Office Visit [facility] MED & PEDS [address] [place], [place] [phone] Kvng Caldwell MD [address] [place], [place] [phone] Scheduled Orders Name Type Priority Associated Diagnoses Orde r Schedule Bacterial Vaginosis Panel Microbiology Routine Acute vaginitis Ordered: 02/05/2025 Chlamydia/N. Gonorrhoeae RNA, TMA, Urogenitial Microbiology Routine Acute vaginitis Ordered: 02/05/2025 documented as of this encounter Procedures Procedure Name Priority Date/Time Associated Diagnosis Comments POCT , URINE Routine 02/05/2025 6:27 PM EDT Dysuria POCT URINALYSIS DIPSTICK Routine 02/05/2025 6:26 PM EDT Dysuria documented in this encounter Results * POCT Urine (02/05/2025 6:27 PM EDT) Preg Test, Ur Negative Negative, Indeterminate, None Detected, Invalid, Specimen unsatisfactory for evaluation, Weakly Positive, 2+ QC Media Lot # [id number] Lot# Expiration Date ,026 Urine 02/05/2025 6:27 PM EDT Milind Smith MD POINT OF CARE TEST ENTER/EDIT OR DERABLES [...] Media Lot # [id number] Lot# Expiration Date ,247,105 Urine 02/05/2025 6:26 PM EDT Milind Name POINT OF CARE TEST ENTER/EDIT OR DERABLES Final Result documented in this encounter Visit Diagnoses Diagnosis Acute vaginitis- Primary Unspecified vaginitis and vulvovaginitis Dysuria documented in this encounter Additional Health Concerns Assessment Noted Time PHQ-9 Depression Total Score: 0 02/04/20 8:58 AM EDT documented as of this encounter Care Teams Physician Non Invasive Cardiologist Relationship Specialty Start Date End Date Kvng Caldwell MD [address] [place] [id number] PCP - General Internal Medicine 02/05/25 documented as of this encounter
--- OUTSIDE RECORDS SUMMARY | 2025-02-06 12:53 | XMS_ITS | Encounter Summary ---
Author Organization [employer] Address [address] [facility] 7t [place] [address] Care Team Providers Care Nutritional Services Cook Name Role Phone Unavailable Primary Care Provider Unavailabl e Encounter Details Date Type Department Care Team (Latest Contact Info) Description 02/03/2025 Travel Social History Tobacco Use Types Packs/Day Years Used Date Smoking Tobacco: Never Smokeless Tobacco: Never Alcohol Use Standard [...] AM EDT documented as of this encounter Plan of Treatment Upcoming Encounters Date Type Department Care Team (Late st Contact Info) Description 05/05/2025 2:30 PM EDT Office Visit [facility] MED & PEDS [address] [place] [address] Kvng Caldwell MD [address] [place], [place] [phone] documented as of this encounter Visit Diagnoses Not on filedocumented in this encounter Additional Health Concerns Assessment Noted Time PHQ-9 Depression Total Score: 0 02/04/20 25 8:58 AM EDT documented as of this encounter
[2025-02-06 13:22] LABS: Bacterial Vaginosis PCR NEGATIVE (Negative); Candida Group PCR NOT DETECTED (Not Detect); Candida glab krusei PCR NOT DETECTED (Not Detect); Trichomonas vaginalis PCR NOT DETECTED (Not Detect)
[2025-02-06 13:54] LABS: CT PCR NOT DETECTED (Not Detect.); NG PCR NOT DETECTED (Not Detect.)
== END 2025-02-05 00:01 | disposition home or self-care (01) ==
LOC: HO.HHCLNP
PROVIDERS: Visit Provider Internal Medicine Geriatric Medicine
DX: N76.0 Acute vaginitis (principal)
CPT/HCPCS: 81515; 87491; 87591

== ENCOUNTER 2025-05-16 08:38 | Outpatient (REF) | payer BC, SELFPAY ==
--- OUTSIDE RECORDS SUMMARY | 2025-05-16 08:54 | XMS_ITS | Clinical Summary ---
Author Organization [employer] Address [address] [facility] [address] [place] [address] Care Team Providers Care Human Services Instructor Name Role Phone Kvng Caldwell MD Primary Care Prov ider Allergies No known active allergies Medications No known medications Active Problems Problem Noted Date Diagnosed Date Overweight (BMI 25.0-29.9) 05/05/2025 Assessment & Plan (05/05/2025 4:43 PM EDT): Encouraged low calorie diet, exercise as tolerated, follow up as needed Physical exam 05/05/2025 Assessment & Plan (05/05/2025 4:44 PM EDT): Unremarkable examination, no thyroid nodules, no heart murmurs, new labs will be ordered, encouraged weight loss Encounter for medical examination to establish c are 02/03/2025 Assessment & Plan (02/03/2025 9:10 AM EDT): Last pcp visit > 1 year ER: 01/2025 due to UTI Hospitalizations: - Pmhx: - Pshx: - All: - Meds: - G0 LMP: 12/20/24 Menarche: 15yrs Encounters Date Type Department Care Team Description 05/05/2025 2:30 PM EDT Office Visit [facility] MED & PEDS [address] [place] [address] Kvng Caldwell MD Physical exam (Primary Dx); Overweight (BMI 25.0-29.9) 05/05/2025 Travel 04/28/2025 Patient Outreach [facility] MEDICINE [address] [place] [address] Kvng Caldwell MD Pre-visit Planning (SDOH screening completed on 02/03/25 ) from Last 3 Months Family History Medical [...] your housing situation today? I have akilah krystal 02/03/[address] you li [...] Sign Reading Time Taken Comments Blood Pressure 111/65 05/05/2025 2:30 PM EDT Pulse 76 05/05/2025 2:30 PM EDT Temperature 37.2 C (98.9 F) 05/05/2025 2:30 PM EDT Respiratory Rate 20 05/05/2025 2:30 PM EDT Oxygen Saturation 100% 02/05/2025 5:58 PM EDT Inhaled Oxygen Concentration - - Weight 74.5 kg (164 lb 3.2 oz) 05/05/2025 2:30 P M EDT Height 162.6 cm (5' 4 ) 05/05/2025 2:30 PM EDT Body Mass Index 28.18 05/05/2025 2:30 PM EDT Plan of Treatment Health Maintenance Due Date Last Done Comments HIV Screening 2002 Disability Screening 2002 Family Planning (PISQ) 2017 HPV Vaccines (1 - 3-dose series) 2017 Meningococcal B Vaccine (1 o f 2 - Standard) 2018 Hepatitis C Screening 2020 DTaP/Tdap/Td Vaccines (1 - Tdap) 2021 Hepatitis B Vaccines (1 of 3 - 19+ 3-dose series) 2021 Pap Smear 2023 COVID-19 Vaccine ( - 2023-2 5 season) 2024 Influenza Vaccine (#1) 2025 Alcohol/Substance Use Screening 02/03/2026 02/03/2025 Depression Screening 02/03/2026 02/03/2025, 02/03/2025 SDOH Screening 02/03/2026 02/03/2025 Chlamydia and Gonorrhea Screening 02/05/2026 02/05/2025 Tobacco Screening 02/05/2026 02/05/2025 Zoster Vaccines (1 [...] Years) and At-Risk Patients (6 to 49) Years Aged Out No longer eligible b ased on patient's age to complete this topic RSV under 20 months Aged Out No longe r eligible based on patient's age to complete this topic Rotavirus Vaccines Aged Out No longer eligible based on patient's age to complete this topic Procedures Procedure Name Priority Date/Time Associated Diagnosis Comments CHLAMYDIA/N. GONORRHOEAE RNA, TMA, UROGENITAL Routine 02/05/2025 6:47 PM EDT Acute vaginitis from Last 3 Months or Most Recently Relevant to Health Maintenance Results * Chlamydia/N. Gonorrhoeae RNA, TMA, Urogenitial (02/05/2025 6:47 PM EDT) CT PCR NOT DETECTED Not Detect. [facility] Comment:A not detected test result does not exclude the possibilityof infection because test results can be affected byimproper specimen collection, concurrent antibiotic therapy,or the number of organisms in the specimen which may bebelow the sensitivity of the test. As with many diagnostictests, results from the Xpert CT/NG assay should beinterpreted in conjunction with other laboratory andclinical data available to the clinician.Xpert CT/NG performance has not been evaluated in patientsless than 14 years of age. The assay should not be used forthe evaluationof suspected sexual abuse or for other medico-legalindications. Additional testing is recommended in anycircumstance when false positive or false negative resultscould lead to adverse medical, social or psychologicalconsequences. NG PCR NOT DETECTED Not Detect. [facility] Comment:A not detected test result does not exclude the possibilityof infection because test results can be affected byimproper specimen collection, concurrent antibiotic therapy,or the number of organisms in the specimen which may bebelow the sensitivity of the test. As with many diagnostictests, results from the Xpert CT/NG assay should beinterpreted in conjunction with other laboratory andclinical data available to the clinician.Xpert CT/NG performance has not been evaluated in patientsless than 14 years of age. The assay should not be used forthe evaluationof suspected sexual abuse or for other medico-legalindications. Additional testing is recommended in anycircumstance when false positive or false negative resultscould lead to adverse medical, social or psychologicalconsequences. Swab Vaginal structure / Unknown 02/05/2025 6:47 PM EDT 02/06/2025 11:24 AM EDT Narrative [facility] - 02/06/2025 1:54 PM EDT Vaginal us Milind Smith MD LAB MICROBIOLOGY - GENERAL ORDER AMBIKA Final Result [facility] [address] [place] [address] [phone] from Last 3 Months or Most Recently Relevant to Health Maintenance Insurance [address] [place] [address] [employer] P[employer] Care Teams Human Services Instructor Relationship Specialty Start Date End Date Kvng Caldwell MD [address] [place] [id number] PCP - General Internal Medicine 02/05/25
[2025-05-16 14:14] LABS: MANUAL DIFF FLAG NO
[2025-05-16 14:27] LABS: Hematocrit 39.4 % (37.0-47.0); Hemoglobin 13.4 g/dl (12.0-16.0); Imm Gran Abs Auto 0.01 X10*3/uL (0.00-0.03); Imm Gran Pct Auto 0.1 % (0.0-0.4); Lymphocytes Absolute Auto 2.6 X10*3/uL (1.2-4.9); Mean Corpuscular HGB Conc 34.0 g/dl (31.0-35.0); Mean Corpuscular Hemoglobin 29.0 pg (27.0-33.0); Mean Corpuscular Volume 85.3 fL (80.0-98.0); NRBC Abs Auto 0.000 X10*3/uL (0.0-0.012); NRBC Pct Auto 0.0 /100WBC (0.0-0.2); Platelet Count 324 X10*3/uL (160-400); Red Blood Count 4.62 X10*6/uL (4.20-5.50); White Blood Count 8.1 X10*3/uL (4.8-10.8)
[2025-05-16 14:36] LABS: Hemoglobin A1C 125.7272 umol/L; Total Hemoglobin (HGBA1C) 3454.5561 umol/L
[2025-05-16 14:49] LABS: Alanine Aminotransferase 31 U/L (0-31); Albumin Level 4.1 g/dL (3.5-5.0); Alkaline Phosphatase 92 U/L (39-117); Anion Gap 11 (12-20); Aspartate Amino Transferase 29 U/L (5-31); Blood Urea Nitrogen 13 mg/dL (9-16); Calcium 8.9 mg/dL (8.4-10.2); Carbon Dioxide 25 mmol/L (22-29); Chloride 107 mmol/L (96-108); Cholesterol 114 mg/dL (<200); Estimated Glomerular Filt Rate > 60; HDL Cholesterol 41 mg/dL (>40); Potassium 4.0 mmol/L (3.3-5.1); Sodium 139 mmol/L (135-145); Total Protein 6.8 g/dL (6.5-8.0); Triglycerides 37 mg/dL (<150)
[2025-05-17 08:14] LABS: HIV Num 1 0.08 S/CO (0.00-0.99); ~HepC Num1 0.19 S/CO (0.00-0.79); ~Hepatitis C Antibody Nonreactive (Nonreactive)
== END 2025-05-16 08:39 | disposition home or self-care (01) ==
LOC: HO.CHCLDS 08:38
PROVIDERS: Visit Provider Internal Medicine
DX: Z00.00 Encounter for general adult medical examination without abnormal findings (principal); Z13.6 Encounter for screening for cardiovascular disorders; Z11.59 Encounter for screening for other viral diseases; Z11.4 Encounter for screening for human immunodeficiency virus [HIV]
CPT/HCPCS: 36415; 80053; 80061; 83036; 84443; 85025; 86803; 87389